=== PATIENT | male | born 1955 | race Caucasian/White ===

== ENCOUNTER 2020-09-05 16:30 | Inpatient (IN) | payer BC, SELFPAY ==
[2020-09-05] VITALS (10 sets, daily range): BP systolic 118–175; BP diastolic 80–113; PULSE 81–117; RESP 16–27; TEMP 36.2–36.7; O2SAT 95–98; BMI 29.5
--- NOTE | 2020-09-05 16:41 | ECG_ITS ---
[facility] Test Date: 2020-09-05 Pat Name: Mario Horta Department: Room: Gender: Male Mobile Sales Technician: : 1955 Requested By: Hector Lauren Order Number: [id number] Oscar MD: MARY KELLY Measurements Intervals [place] Rate: 86 P: 61 VT: 188 QRS: -27 QRSD: 94 T: 26 QT: 372 QTc: 445 Interpretive Statements SINUS RHYTHM BORDERLINE LEFT AXIS DEVIATION [QRS AXIS < -20] MODERATE VOLTAGE CRITERIA FOR LVH, CONSIDER NORMAL VARIANT [MEETS CRITERIA IN ONE OF: R(aVL), S(V1), R(V5), R(V5/V6)+S(V1)] MODERATE ST DEPRESSION [0.05+ mV ST DEPRESSION] No previous ECG available for comparison Electronically Signed On 09-05-2020 19:27:52 GAS PLANT REPAIRER by MARY KELLY [email or web address] hospitalThe [facility].[employer]/store/NU/[id number] f
--- NOTE | 2020-09-05 16:41 | XR_ITS ---
WS: [id number] XR chest 1V portable [id number] REASON FOR EXAM: chest pain FINDINGS: Moderate tortuosity thoracic aorta. Heart size is within normal limits. Elevation versus eventration of the right hemidiaphragm. No active pulmonary parenchymal or pleural disease noted. Calcified granulomatous disease is present in both hemithoraces. No significant abnormality of the bony thorax. XR/XR chest 1V portable [id number] IMPRESSION: No acute chest abnormality.
--- NOTE | 2020-09-05 18:41 | ECG_ITS ---
[facility] Test Date: 2020-09-05 Pat Name: Mario Horta Department: Room: Gender: Male Control Panel Assembler: : 1955 Requested By: Hector Lauren Order Number: [id number] Oscar MD: MARY KELLY Measurements Intervals [place] Rate: 87 P: 70 MD: 195 QRS: -32 QRSD: 83 T: 17 QT: 346 QTc: 418 Interpretive Statements SINUS RHYTHM PATTERN CONSISTENT WITH PULMONARY DISEASE MODERATE VOLTAGE CRITERIA FOR LVH, CONSIDER NORMAL VARIANT [MEETS CRITERIA IN ONE OF: R(aVL), S(V1), R(V5), R(V5/V6)+S(V1)] ACUTE OR Compared to ECG 09/05/2020 16:40:10 ST (T wave) deviation no longer present Electronically Signed On 09-05-2020 19:31:10 HOME WEATHERIZING WORKER by MARY KELLY [id number]
[2020-09-05 19:05] LABS: Basophils # 0.1 10^3/uL (0.0-0.1); Basophils % 0.4 %; Eosinophils # 0.1 10^3/uL (0.0-0.8); Eosinophils % 0.6 %; Hematocrit 53.3 % (42.0-52.0); Hemoglobin 18.2 g/dL (11.7-16.6); Lymphocytes # 1.5 10^3/uL (0.8-4.8); Lymphocytes % 11.6 %; Mean Corpuscular HGB Conc 34.1 g/dL (30.0-36.0); Mean Corpuscular Hemoglobin 29.9 pg (28.0-34.0); Mean Corpuscular Volume 87.7 fL (80-94); Mean Platelet Volume 11.2 fL (7.4-10.4); Monocytes # 0.7 10^3/uL (0.2-0.9); Monocytes % 5.4 %; Neutrophils # 10.22 10^3/uL (1.8-7.7); Neutrophils % 81.6 %; Nucleated Red Blood Cells % 0 %; Platelet Count 244 10^3/cmm (130-400); Red Blood Count 6.08 10^6/uL (4.1-5.3); Red Cell Distribution Width 12.6 % (12.1-15.1); White Blood Count 12.5 10^3/uL (4.0-10.0)
[2020-09-05 19:23] LABS: Alanine Aminotransferase 48 U/L (0-41); Albumin Level 4.7 g/dL (3.5-5.2); Alkaline Phosphatase 69 IU/L (40-130); Aspartate Amino Transferase 40 U/L (0-40); Blood Urea Nitrogen 19 mg/dL (8-23); Calcium 10.3 mg/dL (8.5-10.5); Carbon Dioxide 26 mmol/L (22-29); Chloride 101 mmol/L (98-107); Globulin 2.3 g/dL (1.3-4.6); Glomerular Filtration Rate 55.8 mL/min (90-130); Glucose 160 mg/dL (65-115); Osmolality Calculated 298 mOsm/kg (285-295); Sodium 141 mmol/L (136-145); Total Bilirubin 0.5 mg/dL (0.15-1.2); Troponin(5th) Baseline 82 ng/L (0-15)
--- NOTE | 2020-09-05 19:53 | W.ED.BACK ---
HPI - Back Pain/Injury General: Chief Complaint: Back Pain/Injury Stated Complaint: possible heart issue/clammy/not feeling right Time Seen by Provider: 09/05/20 19:15 History of Present Illness: HPI Narrative: 65-year-old male here with upper back pain. 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 There is no chest pain. He did not get short of breath. He did, however, get cold and clammy . The diaphoresis lasted for a while, then resolved on its own. His pain in the back is much better now. He states it essentially gone MD elicited complaint: back pain Pertinent past history: other Onset (ago): hour(s) Timing: constant Severity: moderate Similar Symptoms Previously: No Quality: dull Location: thoracic spine Radiation: none Exacerbating factors: other Relieving factors: none Context: other Associated symptoms: Reports nausea and other (Diaphoresis); Deny abdominal pain, fever(s), hematuria, syncope, tingling/numbness/burning, vomiting or weakness Treatments prior to arrival: NSAIDS Review of Systems Const: Denies: fever(s) Eyes: Denies: change in vision or blurry vision ENMT: Denies: odynophagia, swelling of lips/tongue or sinus pain Card: Denies: syncope Resp: Denies: dyspnea, productive cough, non-productive cough or wheezing GI: Reports: nausea; Denies: abdominal pain or vomiting : Denies: difficulty urinating or hematuria Musc: Reports: back pain; Denies: neck pain, joint redness or joint warmth Skin/Breast: Denies: rash or erythema Neuro: Reports: dizziness; Denies: headache(s), vertigo or seizure-like activity Psych: Denies: anxiety Physical Exam Const: GENERAL APPEARANCE: well developed ORIENTATION/CONSCIOUSNESS: Yes oriented to person, Yes oriented to place and Yes oriented to time HENMT: COMMON NORMALS: normocephalic, external ears normal and Normal external nose present HEAD & SCALP: normocephalic FACE & SINUS: normal facial exam NOSE: Normal external nose present and No nasal discharge present EXTERNAL EAR: Yes external ears normal Eye: COMMON NORMALS: Equal, round and reactive pupils present, EOMs intact bilaterally and conjunctivae normal EYELID: eyelids normal CONJUNCTIVA: Yes conjunctivae normal PUPIL: Yes Equal, round and reactive pupils present Neck/C-Spine: GENERAL: No tracheal deviation Chest: COMMONS NORMALS: normal inspection of the chest CHEST: No tenderness Resp: COMMON NORMALS: clear to auscultation bilaterally EFFORT & INSPECTION: No tachypneic, No respiratory distress, No retractions, No uses accessory muscles and No tracheal deviation AUSCULTATION: clear to auscultation bilaterally, no rhonchi, no wheezes and lung sounds not diminished Cardio: COMMON NORMALS: regular rate and regular rhythm RATE: regular rate RHYTHM: regular rhythm HEART SOUNDS: no murmurs PERIPHERAL PULSES: radial pulses present GI: INSPECTION: No abdominal distension AUSCULTATION: No Hyperactive bowel sounds present and No Hypoactive bowel sounds present PALPATION: No Guarding due to palpation present (GI) and No Rigid due to palpation PERCUSSION: no dullness to percussion and no tympanic to percussion Back/Pelvis: OTHER: No reproducible tenderness to palpation of the thoracic spine or ribs posteriorly. Neuro: SENSORIUM/ORIENTATION: Yes oriented to person, Yes oriented to place and Yes oriented to time Psych: COMMON NORMALS: mental status grossly normal Skin: COMMON NORMALS: no rashes or lesions noted GENERAL SKIN EXAM: no rashes or lesions noted Course Consultations: Consultation #1: [facility] Time: 19:33 Consultation #2: [facility] Time: 19:49 Vital Signs: Vital signs: Vital Signs Temperature 98.1 F 09/05/20 17:45 Pulse Rate 117 H 09/05/20 23:00 Respiratory Rate 27 H 09/05/20 23:00 Blood Pressure 154/105 09/05/20 23:00 Pulse Oximetry 98 09/05/20 20:45 MDM - Back Pain/Injury MDM Narrative: Medical decision making narrative: 65-year-old male patient presents with upper back pain to the ER. He never had any chest pain, or significant shortness of breath. He did have an episode of diaphoresis. He has no prior coronary disease history. His initial EKG was done from the waiting room, and showed a minimal less than [address] elevation in 3 and aVF leads. This was shown to physician prior to my shift. He was still in the waiting room at his 2-hour EKG time, at which point his laboratory was drawn. On 2-hour EKG, he continued to have minimal ST elevation in lead III and aVF. He also had some ST depression in V1 and V2, thought to be possible reciprocal change. Cardiology was consulted at that point. His troponin in the meantime came back at 82. This was his initial troponin as he was in the waiting room. Cardiology recommended interventional consultation. They were notified, and the Glass Mould Cleaner team was activated. He received Plavix, aspirin, and heparin. He remained stable. Lab Data: Labs: Lab Results 09/05/20 09/05/20 09/05/20 Range/Units 18:44 18:44 18:44 WBC 12.5 H (4.0-10.0) 10^3/ uL RBC 6.08 H (4.1-5.3) 10^6/u L Hgb 18.2 H (11.7-16.6) g/dL Hct 53.3 H (42.0-52.0) % MCV 87.7 (80-94) fL MCH 29.9 (28.0-34.0) pg MCHC 34.1 (30.0-36.0) g/dL RDW 12.6 (12.1-15.1) % Plt Count 244 (130-400) 10^3/c mm MPV 11.2 H (7.4-10.4) fL Neut % (Auto) 81.6 % Lymph % (Auto) 11.6 % [place] % (Auto) 5.4 % Eos % (Auto) 0.6 % Baso % (Auto) 0.4 % Neut # (Auto) 10.22 H (1.8-7.7) 10^3/u L Lymph # (Auto) 1.5 (0.8-4.8) 10^3/u L [place] # (Auto) 0.7 (0.2-0.9) 10^3/u L Eos # (Auto) 0.1 (0.0-0.8) 10^3/u L Baso # (Auto) 0.1 (0.0-0.1) 10^3/u L Nucleated RBC % (a uto) 0 % Nucleated RBCs # 0.0 /100WBC Sodium 141 (136-145) mmol/L Potassium 4.0 (3.5-5.1) mmol/L Chloride 101 (98-107) mmol/L Carbon Dioxide 26 (22-29) mmol/L Anion Gap 18.0 (5-19) BUN 19 (8-23) mg/dL Creatinine 1.3 H (0.7-1.2) mg/dL GFR Calculation 55.8 L (90-130) mL/min Glucose 160 H (65-115) mg/dL Calculated Osmolal ity 298 H (285-295) mOsm/k g Calcium 10.3 (8.5-10.5) mg/dL Total Bilirubin 0.5 (0.15-1.2) mg/dL AST 40 (0-40) U/L ALT 48 H (0-41) U/L Alkaline Phosphata se 69 (40-130) IU/L Troponin T Baselin e 82 H (0-15) ng/L Total Protein 7.0 (6.6-8.7) g/dL Albumin 4.7 (3.5-5.2) g/dL Globulin 2.3 (1.3-4.6) g/dL Discharge Plan Discharge Admit Provider: Jaciel Rangel Clinical Impression: Myocardial infarction Qualifiers: Myocardial infarction type: unspecified Involved coronary artery: right coronary artery Qualified Code(s): I21.11 - ST elevation (STEMI) myocardial infarction involving right coronary artery Condition: Stable Coding Level of Care Code ED Senior Software Tester for Zulma Farrell
--- NOTE | 2020-09-05 20:05 | PC.NURSE ---
EKG done at 1954 and shown to ER doctor
[2020-09-05] MEDS: clopidogrel 300 mg Tablet 600 MG PO (20:08)
[2020-09-05] MEDS: aspirin 325 mg Tablet PO (20:08)
[2020-09-05] MEDS: heparin 5,000 unit/mL INJ 1 mL 4000 UNIT IVP (20:08)
--- NOTE | 2020-09-05 20:12 | XACV_ITS ---
Ht: 175 cm Wt: 91 kg BSA: 2.12 m2 Gender: Male : 1955 Exam Priority: Routine Procedure(s): Procedure Description: Diagnostic procedure Procedure Description: Coronary Angiography Procedure Description: Percutaneous coronary intervention with KAPIL x2 to RCA Diagnostic Cath Status: Emergency Diagnostic Findings * Indication: 65-year-old man with past medical history of hypertension presented with 1 to 2 hours of chest pain. Transient borderline inferior lead ST elevations were noted. Coal Cutter was emergently activated.. * LM has mild luminal irregularities.. * LAD gives rise to 2 diagonal vessels. LAD has diffuse luminal irregularities. No significant stenosis is noted.. * CX is a medium sized vessel. It gives rise to 2 OM branches. Mid left circumflex artery has 30 to 40% moderate stenosis.. * RCA arises from right coronary cusp and is a large vessel. Mid Right Coronary Artery to dRCA: Moderate 70% stenosis, mid to distal vessel has ulcerated plaque with thrombus. NETO: 2 flow. * Coronary angiography shows right dominance. PCI Status: Emergency Interventional Findings * We engaged the RCA with a JR4 guide catheter. IV heparin was used to maintain an ACT above 250 seconds hroughout the procedure. A 0.014 run-through wire was used to cross the lesion. We performed primary PCI using a 4.0 x 18 mm resolute [place] drug-eluting stent. There was residual stenosis on the proximal edge of the stent that we treated using another 4.0 x 8 mm resolute [place] stent. At this time final angiogram was performed that showed NETO-3 flow, no significant residual stenosis and excellent stent expansion. Guidewire and guide catheter were removed. * Mid Right Coronary Artery to dRCA: 70% stenosis treated with MDT R NETTIE 4.0X18 KAPIL and MDT R NETTIE 4.0X08 KAPIL. 0% residual stenosis, NETO: 3 flow. Conclusions 1. There is severe coronary artery disease with one vessel disease. 2. Mid Right Coronary Artery to dRCA was treated with two Drug Eluting Stent. Recommendations * Continue aspirin and Brilinta for at least 1 year. * High intensity statin therapy. * Beta-anny and lisinopril therapy. * Order echocardiogram. Diagnostic RX Recommendation: PCI w/o planned CABG Pressures Phase:Rest AO : 112 / 73 ( 93 ) @ 3:02:00 PM 121 / 74 ( 94 ) @ 3:06:00 PM 132 / 82 ( 102 ) @ 3:17:00 PM 46 / 16 ( 18 ) @ 3:18:00 PM 146 / 87 ( 115 ) @ 3:26:00 PM 133 / 75 ( 95 ) @ 3:31:00 PM 130 / 18 ( 72 ) @ 3:34:00 PM 147 / 89 ( 110 ) @ 3:44:00 PM Clinical Evaluation EBL: 5mL-10mL Procedural Details Admit Source: Emergency department. Identified patient by full name and date of as verbalized by the patient/guarantor. Does the consent match the physician's order: N/A Emergent. Accurate & Complete Informed Consent: N/A Emergent. Inpatient/Outpatient History & Physical on Chart: N/A Emergent. If H&P is completed, is and addenduem needed: N/A Emergent; If yes, is the addendum complete: N/A Emergent. The risks, benefits, and alternatives of sedation and/or procedure were discussed by physician. The patient agrees to continue. Procedure started. Correct patient, site and procedure confirmed by cath team. IV Site on Arrival: 20 gauge in the right anticubital. IV Site on Arrival: 18 gauge in the left anticubital. Oxygen started at 2liters/min via nasal canula. right groin was prepped with chloroprep then draped in the usual sterile fashion. Physician notified. Baseline sample Acquired. HR: 30 BPM. Physician arrived. 6 [place] XB 3.5 guide catheter was inserted over the wire. Lidocaine 1% infiltrated to the right groin. Physician scrubbed in. Correct Patient: Yes; Correct Procedure: Yes; Correct Site: Yes; Correct Patient Position: Yes; Correct Supplies: Yes; Dried Flammable Prep: N/A Emergent; Blood Products Available: N/A Emergent;. Arterial access obtained with micropuncture set. A 6 [place] JL4 catheter in over wire. Catheter out. A 6 [place] JR4 catheter in over wire. Inventory is CRD 6 FR XB 3.5 GUIDE. Inventory is TR 180cm Runthrough NS extra floppy 0.014 wire. Inventory is CRD 6FR JR 4 GUIDE 100cm. Runthrough guidewire was advanced through the guide catheter to lesion in the MID RCA. Stent inserted to lesion in the mid RCA. Inflation Number : 1 A MDT R NETTIE 4.0X18 KAPIL -Lot Number# [id number] Exp: 01/11/2022 was prepped and advanced across the Mid RCA. The stent was deployed at 12 ILIR for 0:27 seconds. Results checked. stent balloon out. Pronto inserted over the wire. Aspirating at this time. Manual thrombectomy catheter inserted over to the wire. Thrombectomy peformed. Aspiration catheter removed. Inflation Number : 2 A MDT R NETTIE 4.0X08 KAPIL -Lot Number# [id number] Exp: 04/30/2022 was prepped and advanced across the Mid RCA. The stent was deployed at 14 ILIR for 0:24 seconds. Inflation number: 3 The stent balloon was then re-inflated across the Mid RCA to 12 ILIR for 0:12 seconds. Stent balloon out over wire. Multiple views taken of right coronary artery. Run through Wire out. JR4 removed over wire. 6 [place] XB 3 guide catheter was inserted over the wire. ACT drawn. Results 196 seconds. Therapeutic limits - pre-heparin administration 90-150 seconds and monitoring heparin during a vascular procedure >250 seconds. Multiple views taken of left coronary artery. Guide catheter out. A 5 [place] AL1 catheter in over wire. AL1 catheter removed. A 5 [place] AL3 catheter in over wire. Catheter out. A 5 [place] MPA2 catheter in over wire. Catheter out. A 5 [place] JL4.5 catheter in over wire. Catheter out. Right groin view taken. Perclose placed without complications. No signs or symptoms of hematoma noted. Sterile dressing applied per usual sterile fashion. Lot # [id number] Exp: 11/30/2021. A Perclose ([employer]) was successful obtaining hemostatsis at the Right Femoral artery insertion site. Complications: None. Estimated blood loss: 5mL-10mL. Aterial pressure held for 5 minutes. Physician scrubbed out. Family updated. Procedure completed. Medication's Wasted: Lidocaine 1% = 10 mL. Medication's Wasted: Other = Cardene 24.850mg. Medication's Wasted: Heparin = 3000units. [facility] Clinical Fraility Score: 2: Well. Coal Cutter Indications: ACS > 24 hours. Chest Pain Symptom Assessment: Typical Angina Symptoms. Cardiovascular Instability: No. Current diagnosis: NSTEMI. Patient transferred by bed to 1st floor. All medications were verified per physician Dr. Rangel. Vital chart was stopped. Access Site Site: Right Femoral artery Sheath Size: 6 Fr Hemostasis Method: Perclose (Phunware) Hemostasis Success: Successful Procedure Medications Start: 8:52 PM Stop: 8:52 PM Medication: Versed Amount: 1 mg Route: I.V. Start: 8:52 PM Stop: 8:52 PM Medication: Fentanyl Amount: 50 mcg Route: I.V. Start: 8:55 PM Stop: 8:55 PM Medication: Versed Amount: 1 mg Route: I.V. Start: 8:55 PM Stop: 8:55 PM Medication: Fentanyl Amount: 50 mcg Route: I.V. Start: 9:04 PM Stop: 9:04 PM Medication: Heparin Amount: 5000 units Route: I.V. Start: 9:12 PM Stop: 9:12 PM Medication: Aggrastat 12.5 mg/250 mL Amount: ml Route: I.V. bolus Start: 9:12 PM Stop: 9:12 PM Medication: Aggrastat 12.5 mg/250 mL Amount: 16.6 ml Route: I.V. drip Start: 9:12 PM Stop: 9:12 PM Medication: 0.9% Saline Amount: ml Route: I.V. bolus Start: 9:28 PM Stop: 9:28 PM Medication: Cardene Amount: 150 mcg Route: I.C. Start: 9:33 PM Stop: 9:33 PM Medication: Heparin Amount: 3000 units Route: I.V. Start: 9:54 PM Stop: 9:54 PM Medication: Versed Amount: 2 mg Route: I.V. Start: 10:08 PM Stop: 10:08 PM Medication: Fentanyl Amount: 50 mcg Route: I.V. Start: 10:12 PM Stop: 10:12 PM Medication: Fentanyl Amount: 50 mcg Route: I.V. I, the attending physician, have reviewed and verified all procedure medications. Yes, all medications given per verbal order History/Risk Factors Hypertension: No Dyslipidemia: No Peripheral Arterial Disease (PAD): No Myocardial Infarction (NC): No Obesity: No Renal Disease: No Prior Interventions PCI: No CABG: No Valve Surgery: No Report Signatures Finalized by Jaciel Rangel MD on 09/10/2020 10:40 AM
--- NOTE | 2020-09-05 22:34 | PM.HP ---
Providers/Chief Complaint Chief Complaint: possible heart issue/clammy/not feeling right History of Present Illness Mario Horta is a 65 year old male with PMH of hypertension, hypothyroidism, prediabetes presented to hospital with 1 hour of interscapular pain, diaphoresis and generally not feeling well. He was cold and clammy. According to patient he had cut wood about an hour before the upper back discomfort started. This lasted for about an hour. He presented to the hospital and pain got much improved but persisted with intensity of 2-3/10. EKG showed borderline ST elevations in inferior leads with first troponin of 82. On our evaluation of EKG, computer laboratory technician was activated emergently. Patient underwent coronary angiography, that showed mid to distal severe stenosis of the RCA with thrombus, however patient had NETO 2 flow downstream. We performed PCI of the RCA with KAPIL x 2. Review of Systems Const: Denies: fever(s) Eyes: Denies: change in vision Card: Reports: chest pain; Denies: syncope Resp: Denies: dyspnea GI: Denies: nausea or vomiting Musc: Reports: back pain Neuro: Denies: headache(s) Psych: Reports: anxiety Endo: Denies: polyuria All/Imm: Denies: throat swelling Medications/Allergies Home Medications Medication Instructions Recorded Confirmed Last Taken Type atenolol-chlorthalidone 1 tab PO DAILY 09/05/20 09/05/20 09/05/20 History levothyroxine 50 mcg PO DAILY 09/05/20 09/05/20 09/05/20 History lovastatin 20 mg PO DAILY 09/05/20 09/05/20 09/05/20 History metformin 500 mg PO BID 09/05/20 09/05/20 09/05/20 History potassium chloride See Rx Instructions .ROUTE .COMPLEX 09/05/20 09/05/20 09/05/20 History Allergies Allergy/AdvReac Type Severity Reaction Status Date / Time No Known Allergies Allergy Verified 09/05/20 16:48 PFSH Acute PFSH: Medical History (Updated 09/06/20 @ 09:28 by Jaciel Rangel M.D) Hypertension Hypothyroidism Prediabetes Family History (Updated 09/06/20 @ 09:23 by Jaciel Rangel M.D) Grandfather CAD (coronary artery disease) Social History (Updated 11/07/20 @ 09:24 by Beatrice Stephenson Smoking and tobacco status: former smoker Marital status: Vitals/I&O/Wt Last Vital Signs Temp 98.1 F 09/05/20 17:45 Pulse 89 09/05/20 20:45 Resp 16 09/05/20 20:45 BP 166/113 09/05/20 20:45 Pulse Ox 98 09/05/20 20:45 Weight last 48 hrs Weight 200 lb Physical Exam Const: COMMON NORMALS: no acute distress HENMT: COMMON NORMALS: normocephalic Eye: COMMON NORMALS: Equal, round and reactive pupils present Neck/C-Spine: COMMON NORMALS: full ROM Resp: COMMON NORMALS: normal respiratory effort and clear to auscultation bilaterally Cardio: COMMON NORMALS: regular rate, regular rhythm, S1 normal heart sound present, S2 normal heart sound present and No murmurs present (Cardio) GI: COMMON NORMALS: Normal to inspection, nondistended, normoactive bowel sounds present, Soft to palpation and non-tender Extremity: COMMON NORMALS: normal to inspection and no pedal edema Neuro: COMMON NORMALS: patient oriented x3 and no focal motor deficits Psych: COMMON NORMALS: mental status grossly normal Data : 09/06/20 08:05 09/05/20 18:44 A&P Assessment and plan (1) NSTEMI (non-ST elevated myocardial infarction): Status: Acute (2) Hypothyroidism: Status: Acute (3) Prediabetes: Status: Acute (4) Hypertension: Status: Acute Patient had ischemic changes on the EKG as mentioned above. He is s/p PCI with KAPIL x2 to RCA. Admit to CSU Aspirin and Plavix for atleast 1 year High intensity statin therapy Metoprolol and Lisinopril ECHO ordered We will follow Cr as presentation Cr was 1.3 Will initiate home dose of levothyroxine Attestations Medical Necessity Statement*: Care expected to cross 2 midnights. Patient had acute OK and s/p PCI with KAPIL X 2 Coding Level of Care Code Acute Passenger Attendant for g Fwd Diagnoses NSTEMI (non-ST elevated myocardial infarction) I21.4 Hypothyroidism E03.9 Prediabetes R73.03 Hypertension I10
--- NOTE | 2020-09-05 22:50 | PC.NURSE ---
Received report from ZACH [place]. Patient received from school laboratory technician at 2235. Patient is s/p [facility] with right femoral access. Received in report that site was closed with Per-close device. Pressure dressing in place to right groin. Dr Rangel in to see patient. Patient on Aggrastat at 16.6ml/hr. Doctor directed to turn off Aggrastat for 30min due to possible hematoma formation to site. Doctor held pressure ~10min. No s/s of bleeding observed. Site remains soft and non-tender at this time. Will resume Aggrastat at 2310 if no further s/s of bleeding or hematoma formation is observed.
--- NOTE | 2020-09-05 23:40 | PC.NURSE ---
2306. Patient developed large hematoma to right groin. Hematoma outlined. Began holding pressure and placed call to Dr Rangel. Maintained pressure for 15min. Hematoma resolved. Called Dr Rangel. Received direction to maintain pressure for additional 10min. Dr Rangel in to see patient. He also held pressure for an additional 10min. Hematoma completely resolved at this time. Received order to hold aggrastat. Will continue to monitor closely. 9. Patient c/o small area of tenderness to site. No additional swelling palpated at this time.
[2020-09-06] VITALS (13 sets, daily range): BP systolic 94–143; BP diastolic 71–88; PULSE 80–94; RESP 13–18; TEMP 36.4–37; O2SAT 93–97
[2020-09-06] MEDS: metoprolol tartrate 50 mg Tablet PO ×3 (00:21→19:15)
[2020-09-06] MEDS: atorvastatin 40 mg Tablet PO ×2 (00:21→20:48)
--- NOTE | 2020-09-06 00:23 | PC.NURSE ---
Patient reports decreased tenderness to right groin. Site soft at this time. Will continue to monitor site. Aggrastat remains on hold at this time per Dr Bynum.
--- NOTE | 2020-09-06 02:04 | PC.NURSE ---
Patient continues to deny tenderness to right groin. No further hematoma development observed.
--- NOTE | 2020-09-06 04:11 | PC.NURSE ---
Right groin dressing remains c,d,i. No further hematoma formation devoloped. Patient denies pain or discomfort to site.
--- NOTE | 2020-09-06 06:22 | ECG_ITS ---
[facility] Test Date: 2020-09-06 Pat Name: Mario Horta Department: Room: 107 Gender: Male Knotter: reinier : 1955 Requested By: Jaciel Rangel Order Number: [id number] Oscar MD: Carline Lee M.D. Measurements Intervals [place] Rate: 79 P: 32 AK: 198 QRS: -35 QRSD: 87 T: 32 QT: 366 QTc: 420 Interpretive Statements SINUS RHYTHM PATTERN CONSISTENT WITH PULMONARY DISEASE VOLTAGE CRITERIA FOR LVH INFERIOR MYOCARDIAL INFARCTION,OF INDETERMINATE AGE Compared to ECG 09/05/2020 19:05:49 Myocardial infarct finding now present Electronically Signed On 09-06-2020 11:32:30 QUALITY CONTROL DIRECTOR by Carline Lee M.D. [id number]
--- NOTE | 2020-09-06 07:45 | PC.NURSE ---
pt walked with REPRESENTATIVE PERSONAL SERVICE from bed to bathroom in room. Pt reported no pain or discomfort at the time.
[2020-09-06 08:28] LABS: Basophils # 0.1 10^3/uL (0.0-0.1); Basophils % 0.4 %; Eosinophils # 0.2 10^3/uL (0.0-0.8); Eosinophils % 1.5 %; Hemoglobin 15.4 g/dL (11.7-16.6); Lymphocytes # 2.3 10^3/uL (0.8-4.8); Lymphocytes % 20.2 %; Mean Corpuscular HGB Conc 34.2 g/dL (30.0-36.0); Mean Corpuscular Hemoglobin 30.3 pg (28.0-34.0); Mean Corpuscular Volume 88.4 fL (80-94); Mean Platelet Volume 11.1 fL (7.4-10.4); Monocytes # 0.8 10^3/uL (0.2-0.9); Monocytes % 7.1 %; Neutrophils # 7.97 10^3/uL (1.8-7.7); Neutrophils % 70.4 %; Nucleated Red Blood Cells % 0 %; Platelet Count 222 10^3/cmm (130-400); Red Blood Count 5.09 10^6/uL (4.1-5.3); Red Cell Distribution Width 12.8 % (12.1-15.1); White Blood Count 11.3 10^3/uL (4.0-10.0)
[2020-09-06] MEDS: aspirin 81 mg EC Tablet PO (08:34)
[2020-09-06] MEDS: clopidogrel 75 mg Tablet PO (08:34)
[2020-09-06 09:35] LABS: Anion Gap 14.6 (5-19); Blood Urea Nitrogen 17 mg/dL (8-23); Calcium 8.6 mg/dL (8.5-10.5); Carbon Dioxide 25 mmol/L (22-29); Chloride 101 mmol/L (98-107); Glomerular Filtration Rate 75.5 mL/min (90-130); Glucose 169 mg/dL (65-115); Osmolality Calculated 289 mOsm/kg (285-295); Potassium 3.6 mmol/L (3.5-5.1); Sodium 137 mmol/L (136-145)
[2020-09-06] MEDS: levothyroxine 50 mcg Tablet PO (10:33)
--- NOTE | 2020-09-06 11:56 | PC.CHAP ---
Pastoral Care Encounter/Spiritual Assessment Type of Contact [] Declined solid waste disposal manager visit [] Patient/Family/Request visit [] Outpatient visit [] Follow-up visit [] Physician referral [] Code/Alert [X] Routine visit [] Staff referral [] Actively dying [] Patient sleeping [] Family support [] [] Out of room [] Palliative care [] [] Receiving care in room [] Pre-surgical visit [] Trauma [] Long length of stay [] ICU visit [] Other: Relational/Emotional Strength [] Patient feels connected with others/family/visitors/staff [] Distress [] Loneliness/isolation [] Abandonment Spirituality of Patient [] Person of Carol [] Attends Church of their Carol [] Believes in Prayer [] Reads Bible or Buddhist materials [] There are Spiritual issues to be addressed Hand Suture Winder Interventions [] Prayer [] Active listening [] Non-anxious presence [] Spiritual/emotional support [] Crisis/trauma care [] Spiritual counseling [] Bereavement support [] Provided bereavement packet [] Provided Bible/devotional materials [] Provided toy/stuffed animal, coloring book to patient or family member [] Provided Communion [] Anointing/Comins [] Salvation [] Completed spiritual assessment [] Other: Impact on Illness or Injury [] Angry [] Fearful [] Anxious [] Often cries [] Exhaustion [] Unable to work [] Unable to attend temple [] Unable to walk/stand [] Unable to read [] Unable to drive [] Unable to eat/drink [] Unable to sleep [] Unable to be with family [] Patient intubated [] Other: Summary Time spent with patient
--- NOTE | 2020-09-06 20:22 | PM.PN ---
Subjective Subjective: Interval history: Patient has been doing well. He denies any complaints of chest pain, shortness of breath or palpitations. His EKG changes have resolved. Echo has been performed. Right femoral access site is normal with good distal pulses. Vitals/I&O/Wt Last Vital Signs Temp 98.1 F 09/06/20 19:47 Pulse 94 09/06/20 19:47 Resp 18 09/06/20 19:47 BP 143/88 09/06/20 19:47 Pulse Ox 96 09/06/20 19:47 09/06/20 09/06/20 09/06/20 06:59 14:59 22:59 Intake Total 120 / 120 Output Total 1125 / 1125 Balance -1005 / -1005 Weight last 48 hrs Weight 200 lb Physical Exam Const: COMMON NORMALS: no acute distress and patient oriented x3 HENMT: COMMON NORMALS: normocephalic HEAD & SCALP: normocephalic Eye: COMMON NORMALS: Equal, round and reactive pupils present PUPIL: Yes Equal, round and reactive pupils present Neck/C-Spine: COMMON NORMALS: full ROM Resp: COMMON NORMALS: normal respiratory effort and clear to auscultation bilaterally AUSCULTATION: clear to auscultation bilaterally Cardio: COMMON NORMALS: regular rate, regular rhythm, S1 normal heart sound present, S2 normal heart sound present and No murmurs present (Cardio) RATE: regular rate RHYTHM: regular rhythm HEART SOUNDS: S1 normal heart sound present and S2 normal heart sound present GI: COMMON NORMALS: Normal to inspection, nondistended, normoactive bowel sounds present, Soft to palpation and non-tender PALPATION: Yes Soft to palpation Extremity: COMMON NORMALS: normal to inspection and no pedal edema Neuro: COMMON NORMALS: patient oriented x3 and no focal motor deficits Psych: COMMON NORMALS: mental status grossly normal Data : 09/06/20 08:05 09/06/20 08:05 A&P Assessment and plan (1) NSTEMI (non-ST elevated myocardial infarction): Status: Acute (2) Hypothyroidism: Status: Acute (3) Prediabetes: Status: Acute (4) Hypertension: Status: Acute Patient is status post PCI to mid to distal RCA with KAPIL x2. Aspirin and Plavix for atleast 1 year High intensity statin therapy Continue Metoprolol, will initiate Lisinopril today as was held because of elevated creatinine yesterday that has normalized today ECHO has been done and prelim review shows normal LV systolic function Home dose Levothyroxine Patient will be discharged home tomorrow if remains stable Attestations Medical Necessity Statement*: Care expected to cross midnight. Patient had acute ID and is S/P PCI to RCA Coding Level of Care Code Acute Anesthesiology Technologist for Chg Fwd Diagnoses NSTEMI (non-ST elevated myocardial infarction) I21.4 Hypothyroidism E03.9 Prediabetes R73.03 Hypertension I10
[2020-09-06] MEDS: lisinopril 5 mg Tablet PO (20:48)
--- NOTE | 2020-09-06 22:35 | USCV_ITS ---
Mario Horta Age: 65 Gender: M : 1955 Exam Date: 09/06/2020 08:47 Ordering Phys: Jaciel Rangel M.D ([email or web address]) Technologist: Yadira Flores Exam Location: [facility] [place] Indication: POST RI BP: 126 / 77 HR: 89 Rhythm: Sinus Technical Quality: Fair MEASUREMENTS (Male / Female) Normal Values 2D ECHO LV Diastolic Diameter PLAX 3.2 cm 4.2 - 5.9 / 3.9 - 5.3 cm LV Systolic Diameter PLAX 1.8 cm LV Chamber Size 2.7 cm IVS Diastolic Thickness 1.6 cm 0.6 - 1.0 / 0.6 - 0.9 cm IVS Systolic Thickness 2.1 cm LVPW Diastolic Thickness 1.0 cm 0.6 - 1.0 / 0.6 - 0.9 cm LVPW Systolic Thickness 1.0 cm RV Chamber Size 1.8 cm LVOT Diameter 2.1 cm LV Ejection Fraction 2D Teich 78.0 % LV Ejection Fraction MOD 2C 60.0 % LV Ejection Fraction 2C AL 63.7 % LA Diameter 3.4 cm LA Width 2.5 cm LA Height 4.5 cm RA Width 1.8 cm RA Height 4.6 cm Aorta at Sinotubular Diameter 3.0 cm M-MODE LV Diastolic Diameter MM 6.2 cm 4.2 - 5.9 / 3.9 - 5.3 cm LV Systolic Diameter MM 4.2 cm LV Ejection Fraction MM Teich 58.6 % IVS Diastolic Thickness MM 1.1 cm 0.6 - 1.0 / 0.6 - 0.9 cm IVS Systolic Thickness MM 1.4 cm LVPW Diastolic Thickness MM 1.2 cm 0.6 - 1.0 / 0.6 - 0.9 cm LVPW Systolic Thickness MM 1.7 cm RV Diastolic Diameter MM 0.8 cm Aortic Annulus Diameter 3.8 cm LA Ao Ratio MM 1.1 MV E Point Septal Separation 0.6 cm DOPPLER AV Peak Velocity 106.0 cm/s LVOT Peak Velocity 101.0 cm/s AV Area Cont Eq vti 3.9 cm squared AV Area Cont Eq pk 3.2 cm squared MV Area PHT 3.2 cm squared Mitral E to A Ratio 0.6 MV E' Velocity 33.0 cm/s Mitral E to MV E' Ratio 10.6 Mitral E to LV E' Lateral Ratio 9.6 Mitral E to LV E' Septal Ratio 12.2 TR Peak Velocity 213.4 cm/s TR Peak Gradient 18.2 mmHg TR Mean Velocity 176.1 cm/s TR Mean Gradient 12.5 mmHg TR Velocity Time Integral 41.1 cm TV Peak E Velocity 83.0 cm/s PV Peak Velocity 69.0 cm/s RV Acceleration Time 0.1 s RV Ejection Time 0.2 s RV AcT/ET 0.4 FINDINGS Left Ventricle Normal left ventricular size and systolic function. No regional wall motion abnormalities. LVEF is 55 to 60%. Mild left ventricular hypertrophy is noted. Diastolic dysfunction is present. Right Ventricle The right ventricle is normal in size and function. Right Atrium The right atrium is normal in size. Left Atrium The left atrium is normal in size. Mitral Valve Structurally normal mitral valve without significant stenosis or prolapse. There is no mitral regurgitation. Aortic Valve Structurally normal aortic valve without significant sclerosis or stenosis. There is no aortic regurgitation. Tricuspid Valve Structurally normal tricuspid valve without significant stenosis. Mild tricuspid regurgitation is noted.. RVSP is 18 mmHg + RA pressure. Pulmonic Valve Structurally normal pulmonic valve without significant stenosis. There is no pulmonic regurgitation. Pericardium Normal pericardium without effusion. Aorta Normal ascending aorta dimension. CONCLUSIONS LV systolic function is normal with EF of 55 to 60%. Grade 1 diastolic dysfunction is present. No significant valvular heart disease is present. No comparison studies available. Jaciel Rangel MD (Electronically Signed) Final Date: 07 September 2020 17:45 S
[2020-09-07 04:00] VITALS: BP 101/65; PULSE 87; RESP 17; TEMP 36.5; O2SAT 94
--- NOTE | 2020-09-07 06:54 | PC.NURSE ---
PT HAD AN UNEVENTFUL NIGHT. PT RESTED WITH EYES CLOSED. VS WNL. WILL CONTINUE TO MONITOR.
[2020-09-07 07:00] VITALS: BP 105/70; PULSE 86; RESP 23; TEMP 36.9; O2SAT 94
[2020-09-07] MEDS: aspirin 81 mg EC Tablet PO (08:10)
[2020-09-07] MEDS: levothyroxine 50 mcg Tablet PO (08:10)
[2020-09-07] MEDS: metoprolol tartrate 50 mg Tablet PO (08:10)
[2020-09-07] MEDS: clopidogrel 75 mg Tablet PO (08:10)
[2020-09-07] MEDS: lisinopril 5 mg Tablet PO (08:10)
--- NOTE | 2020-09-07 09:12 | PM.DCS ---
Discharge Providers Date of Admission: 09/05/20 20:48 Date of Discharge: September 07, 2020 Attending Provider at Admission: Jaciel Rangel M.D Attending Provider at Discharge: Jaciel Rangel M.D Diagnoses at Discharge Discharge Diagnosis (1) NSTEMI (non-ST elevated myocardial infarction): Status: Resolved Permanent problem details: s/p PCI of mid to distal RCA with KAPIL x 2 (2) Hypothyroidism: Status: Acute (3) Prediabetes: Status: Acute (4) Hypertension: Status: Acute Reason for Visit Reason for Visit: possible heart issue/clammy/not feeling right Brief History: Non-ST elevation [place] Hospital Course Hospital Course 65-year-old man with past medical history of hypertension, hypothyroidism, prediabetes presented to hospital with 1 to 2 hours of interscapular and chest pain associated with diaphoresis. EKG was concerning for borderline ST elevations in inferior leads. Initial troponin was 82. Patient was emergently taken to the [facility]st. Coronary angiography showed mid to distal RCA 70% stenosis with thrombus. This was successfully treated with KAPIL x2. Echo revealed normal LV systolic function with no significant regional wall motion abnormalities. Patient's hospital course was unremarkable. He was discharged in stable condition, on aspirin, plavix, atorvastatin, metoprolol and Lisinopril. Physical Exam Const: COMMON NORMALS: no acute distress and patient oriented x3 HENMT: COMMON NORMALS: normocephalic HEAD & SCALP: normocephalic Eye: COMMON NORMALS: Equal, round and reactive pupils present PUPIL: Yes Equal, round and reactive pupils present Neck/C-Spine: COMMON NORMALS: full ROM Resp: COMMON NORMALS: normal respiratory effort and clear to auscultation bilaterally AUSCULTATION: clear to auscultation bilaterally Cardio: COMMON NORMALS: regular rate, regular rhythm, S1 normal heart sound present, S2 normal heart sound present and No murmurs present (Cardio) RATE: regular rate RHYTHM: regular rhythm HEART SOUNDS: S1 normal heart sound present and S2 normal heart sound present GI: COMMON NORMALS: Normal to inspection, nondistended, normoactive bowel sounds present, Soft to palpation and non-tender PALPATION: Yes Soft to palpation Extremity: COMMON NORMALS: normal to inspection and no pedal edema Neuro: COMMON NORMALS: patient oriented x3 and no focal motor deficits Psych: COMMON NORMALS: mental status grossly normal Discharge Data Data Completed and Pending: Completed Studies During Hospitalization Category Date Time Status XR chest 1V jacob ble [id number] Stat Exams 09/05/20 16:41 Completed Pending at discharge Category Date Time Status VISUAL MERCHANDISING SPECIALIST request for service Stat Exams 09/05/20 20:12 Taken CV echo complete* [id number] Routine Ultrasound 09/06/20 22:35 Taken Labs from last 24 hours 09/06/20 08:05 Sodium 137 Potassium 3.6 Chloride 101 Carbon Dioxide 25 Anion Gap 14.6 BUN 17 Creatinine 1.0 GFR Calculation 75.5 L Glucose 169 H Calculated Osmolal ity 289 Calcium 8.6 Vitals: Last Vital Signs Temp 98.4 F 09/07/20 07:00 Pulse 86 09/07/20 07:00 Resp 23 H 09/07/20 07:00 BP 105/70 09/07/20 07:00 Pulse Ox 94 09/07/20 07:00 Discharge Plan Discharge Patient Disposition: Home Condition: Stable Prescriptions: New atorvastatin 40 mg Tablet 40 mg PO BEDTIME Qty: 90 RF: 3 clopidogrel 75 mg Tablet 75 mg PO DAILY Qty: 90 RF: 3 aspirin 81 mg Tablet,Delayed Release (Dr/Ec) 81 mg PO DAILY Qty: 90 RF: 3 lisinopril 5 mg Tablet 5 mg PO DAILY Qty: 60 RF: 3 metoprolol tartrate 50 mg tablet 50 mg PO BID Qty: 120 RF: 3 Continued levothyroxine 50 mcg tablet 50 mcg PO DAILY RF: 0 Held metformin 500 mg tablet 500 mg PO BID RF: 0 Hold Instructions: Resume on 09/09/20. Discontinued atenolol-chlorthalidone 100-25 mg tablet 1 tab PO DAILY RF: 0 potassium chloride 10 mEq tablet extended release See Rx Instructions .ROUTE .COMPLEX RF: 0 lovastatin 20 mg tablet 20 mg PO DAILY RF: 0 Discharge Orders: Discharge Order (Routine); Ordered 09/07/20 Ordered By: Jaciel Rangel Referrals: Jaciel Rangel M.D [Physician] - 1 month ([facility] will be calling you to schedule a post cardiology followup with Dr. Rangel to be seen in one month. If you don't hear from them by Tuesday afternoon, please give them a call. Thank you) Faye Rangel FNP [Nurse Practitioner] - 7-10 days ([facility] will be calling you to schedule a post procedure followup with ANTONIO Novoa to be seen in one week. If you don't hear from them by Tuesday afternoon, please give them a call. Thank you) Discharge Diet: Cardiac Discharge Activity: Increase activity as tolerated Patient Instructions: Metoprolol (By mouth), Lisinopril (By mouth), Aspirin (By mouth), Atorvastatin (By mouth), Clopidogrel (By mouth), Chronic Hypertension (DC), Post Angiogram Home Care Instructions Activity Restrictions/Additional Instructions: Please do not lift more than 5 pounds weight for next 5 days Discharge Attestations Time Spent in Discharge Care*: greater than 30 min Quality Metrics Clinical Quality Measures During this hospital stay, did patient experience: None Coding Level of Care Code Acute Calcine Furnace Loader for Zulma Farrell Diagnoses NSTEMI (non-ST elevated myocardial infarction) I21.4 Hypothyroidism E03.9 Prediabetes R73.03 Hypertension I10
[2020-09-07 09:53] VITALS: BP 105/70; PULSE 86; RESP 23; TEMP 36.9; O2SAT 94
--- NOTE | 2020-09-07 10:52 | PC.NURSE ---
Addendum entered by Ramila Ding 09/07/20 10:53: Note time should have been 1018. Original Note: discharge instructions given, all questions answered at this time. pt was escorted to door where private vehicle picked him up.
== END 2020-09-07 10:18 | disposition home or self-care (01) | DRG 247 ==
LOC: ER 20:33 → CSU 09-06 00:01
PROVIDERS: Family Medicine; Admitting Provider Internal Medicine; Emergency Provider Emergency Medicine; Visit Provider Internal Medicine
PROC: 027035Z Dilation of Coronary Artery, One Artery with Two Drug-eluting Intraluminal Devices, Percutaneous Approach (ICD-10-PCS; principal; 2020-09-05 20:30)
PROC: 027035Z Dilation of Coronary Artery, One Artery with Two Drug-eluting Intraluminal Devices, Percutaneous Approach (ICD-10-PCS; 2020-09-05 20:30)
DX: I21.4 Non-ST elevation (NSTEMI) myocardial infarction (principal); I25.10 Atherosclerotic heart disease of native coronary artery without angina pectoris; I10 Essential (primary) hypertension; E03.9 Hypothyroidism, unspecified; R73.03 Prediabetes; Z87.891 Personal history of nicotine dependence
CPT/HCPCS: 12345; 36415; 37184; 71045; 80048; 80053; 84484; 85025; 85347; 93005; 93306; 93454; 99282; C1757; C1760; C1769; C1874; C1887; C1894; C9606; J1644; J2250; J3010; J3246; J7030; Q9967

== ENCOUNTER → 2020-09-12 11:50 | Outpatient (BNVA) | payer BC, SELFPAY | PROVIDERS: PCP Family Medicine; Visit Provider Nurse Practitioner Family | DX: I25.10 Atherosclerotic heart disease of native coronary artery without angina pectoris (principal) | CPT/HCPCS: 80048 ==

== ENCOUNTER 2022-09-20 08:23 | Day surgery (SDC) | payer OTHER, SELFPAY ==
[2022-09-16 10:38] VITALS: BMI 29.5
--- NOTE | 2022-09-20 06:00 | W.PM.OPSFHP ---
Same Day Surgery H&P Indication for Procedure/HPI DATE OF PROCEDURE: September 20, 2022 CHIEF COMPLAINT/INDICATIONFOR SURGICAL PROCEDURE: Screening colonoscopy PREOP DIAGNOSIS: Screening colonoscopy PLANNED PROCEDURE: Operation Date: 09/20/22 10:00 Proposed Procedures p Colonoscopy 95641,Z12.11(Not Applicable) - Roosevelt Watkins MD 08/04/2022 This is a pleasant 67 years old gentleman never had a colonoscopy before.? He has been on Plavix for coronary artery disease for the past couple of years as he did have coronary artery stents.? Patient is referred to my practice to discuss screening colonoscopy.? He denies bleeding per rectum or history of colon cancer change in bowel habits. 09/20/2022 Patient comes today for screening colonoscopy ROS All systems have been reviewed negative except as for the above or per problem list. Medications/Allergies* Home Medications Medication Instructions Recorded Confirmed Type levothyroxine 50 mcg tablet 50 mcg PO DAILY 09/05/20 09/20/22 History metformin 500 mg tablet 1,000 mg PO DAILY 09/05/20 09/20/22 History tamsulosin 0.4 mg capsule (Flomax) 0.4 mg PO DAILY 06/28/22 09/20/22 History Allergies/Adverse Reactions Allergy/AdvReac Type Severity Reaction Status Date / Time No Known Allergies Allergy Verified 09/16/22 10:44 Pertinent History/Comorbid Conditions* Medical History (Updated 08/04/22 @ 08:59 by Roosevelt Watkins MD) Coronary artery disease Hypertension Hypothyroidism Myocardial infarction Prediabetes Family History (Updated 09/06/20 @ 09:23 by Jaciel Rangel M.D) CAD (coronary artery disease) Grandfather Social History Smoking and tobacco status: never smoked Alcohol intake: current Alcohol intake frequency: holidays/special occasions only Marital status: Pertinent Exam Findings alert, oriented x 3, regular rate & rhythm and procedure specific exam findings (Abdominal exam nontender nondistended soft) Recommendations Surgery/Procedure today (Colonoscopy with possible biopsy) Coding Level of Care Code Acute Ophthalmology Surgical Technician for Zulma Farrell
[2022-09-20 08:38] VITALS: BP 141/88; PULSE 89; RESP 16; TEMP 36.6; O2SAT 96
[2022-09-20] MEDS: sodium chloride 0.9% 1,000 ML 30 ML IV (08:51)
--- NOTE | 2022-09-20 10:31 | P.ANESASSM_ITS ---
Pre-Anesthetic Assessment Height/Weight: Height 1.75 m Weight 90.718 kg Temp Pulse Resp BP Pulse Ox O2 Del Method 97.9 F 89 16 141/88 96 09/20/22 08:38 09/20/22 08:38 09/20/22 08:38 09/20/22 08:38 09/20/22 08:38 09/20/22 08:38 Preop Diagnosis: Screening colonoscopy Operation Date: 09/20/22 10:00 Proposed Procedures p Colonoscopy 70437,Z12.11(Not Applicable) - Roosevelt Watkins MD Familial anesthetic complications: none Was Beta Sung taken within 24 hours: Yes Was Clonidine taken within 24 hours: N/A Last intake: Intake Last Liquid Date 09/19/22 Last Liquid Time 22:00 Last Solid Date 09/18/22 Last Solid Time 00:00 Social Alcohol (ocassional) and No tobacco Exam alert, oriented x 3, clear to auscultation bilaterally and regular rate & rhythm Airway Submandibular: within normal limits Cervical ROM: within normal limits Mallampati: Class II Dentition: false (uppers) and full Pulmonary None reported CV/HEM Coronary Artery Disease and Hypertension stents x 2-2 years ago None reported Hepatic None reported GI Gastroesophageal Reflux Disease Metabolic Diabetes Mellitus (type 2), Hyperlipidemia and Thyroid Disease [facility] [place] [place] None reported Neuropsych None reported Anesthetic Plan ASA status: 3 Anesthesia: MAC Risk of > 500 ml blood loss (7ml/kg in children): No Medications/Allergies Home Medications Medication Instructions Recorded Confirmed Last Taken Type levothyroxine 50 mcg tablet 50 mcg PO DAILY 09/05/20 09/20/22 09/20/22 History metformin 500 mg tablet 1,000 mg PO DAILY 09/05/20 09/20/22 09/18/22 History aspirin 81 mg tablet,delayed 81 mg PO DAILY #90 tabs 08/14/21 09/20/22 09/19/22 Rx release atorvastatin 40 mg tablet 40 mg PO BEDTIME #90 tabs 08/28/21 09/20/22 09/19/22 Rx metoprolol tartrate 50 mg tablet 50 mg PO BID #180 tabs 02/02/22 09/20/22 09/20/22 Rx tamsulosin 0.4 mg capsule (Flomax) 0.4 mg PO DAILY 06/28/22 09/20/22 09/19/22 History lisinopril 20 mg tablet 20 mg PO DAILY #90 tabs 07/06/22 09/20/22 09/19/22 Rx clopidogrel 75 mg tablet 75 mg PO DAILY #90 tabs 08/23/22 09/16/22 09/14/22 Rx Allergies Allergy/AdvReac Type Severity Reaction Status Date / Time No Known Allergies Allergy Verified 09/16/22 10:44 Current Medications Generic Name Dose Route Start Last Admin Trade Name Mau PRN Reason Stop Dose Admin Sodium Chloride 1,000 mls @ 30 mls/hr 09/20/22 08:30 09/20/22 08:51 Sodium Chloride 0.9% IV 30 mls/hr .Q24H NAJMA Administration PFSH Anesthesia Medical History Coronary artery disease Hypertension Hypothyroidism Myocardial infarction Prediabetes Family History Grandfather CAD (coronary artery disease) Social History Smoking and tobacco status: never smoked Alcohol intake: current Alcohol intake frequency: holidays/special occasions only Marital status: Data Anesthesia Cardiac Studies: Echocardiogram Ultrasound 09/06/20
[2022-09-20 11:11] VITALS: BP 101/74; PULSE 81; RESP 12; TEMP 36.2; O2SAT 92
[2022-09-20 11:21] VITALS: BP 92/73; PULSE 84; RESP 17; O2SAT 92
--- NOTE | 2022-09-20 15:37 | ANE.PACU2 ---
Inpatient post-anesthesia follow up: Airway intact: Yes Vital signs: Temperature 97.1 F Pulse Rate 84 Respiratory Rate 17 Blood Pressure 92/73 Pulse Oximetry 92 Oxygen Delivery Me thod Room Air Oxygen Flow Rate Fraction of Inspir ed Oxygen Hydration adequate: Yes Nausea and vomiting: No Pain level: 2 Mental status: Baseline
== END 2022-09-20 11:52 | disposition home or self-care (01) ==
PROVIDERS: PCP Family Medicine; Visit Provider Surgery
PROC: 0DJD8ZZ Inspection of Lower Intestinal Tract, Via Natural or Artificial Opening Endoscopic (ICD-10-PCS; CPT 45378; principal; 2022-09-20 10:00)
DX: Z12.11 Encounter for screening for malignant neoplasm of colon (principal); D12.4 Benign neoplasm of descending colon; Q27.30 Arteriovenous malformation, site unspecified; K57.30 Diverticulosis of large intestine without perforation or abscess without bleeding; I25.10 Atherosclerotic heart disease of native coronary artery without angina pectoris; I10 Essential (primary) hypertension; E03.9 Hypothyroidism, unspecified; I25.2 Old myocardial infarction; E11.9 Type 2 diabetes mellitus without complications; E78.5 Hyperlipidemia, unspecified; Z79.84 Long term (current) use of oral hypoglycemic drugs; Z79.82 Long term (current) use of aspirin
CPT/HCPCS: 45380; 88305; J2704; J7030